=== PATIENT | male | born 2000 | race Caucasian/White ===

== ENCOUNTER 2020-03-31 14:28 | Emergency (ER) | payer MEDICAID ==
[~2020-03-31] VITALS: Ht 190.5 cm; Wt 75.0 kg
[~2020-03-31 14:28] MED LIST: ALBU6.7H11 IH
[2020-03-31] MEDS ORDERED: IBUPROFEN 600MG TABLET PO ONE (15:15)
[2020-03-31 18:00] VITALS: BP 127/78
== END 2020-03-31 18:13 | disposition home or self-care (01) ==
LOC: ER 14:28
DX: J45.909 Unspecified asthma, uncomplicated (principal); Z20.828 Contact with and (suspected) exposure to other viral communicable diseases; R07.89 Other chest pain; J02.9 Acute pharyngitis, unspecified; R06.02 Shortness of breath; R19.7 Diarrhea, unspecified
CPT/HCPCS: 71045; 87070; 87430; 93005; 99285; C9803; U0003; 87635

== ENCOUNTER 2023-06-26 09:27 | Emergency (ER) | payer MEDICAID ==
[~2023-06-26] VITALS: Ht 190.5 cm; Wt 87.0 kg
[~2023-06-26 09:27] MED LIST changes: -ALBU6.7H11 IH; +ALBU6.7H15 IH
[2023-06-26 09:29] VITALS: O2SAT 99
[2023-06-26] MEDS ORDERED: P20 PO (09:50)
[2023-06-26] MEDS ORDERED: ALBU6.7H15 INH (09:50)
[2023-06-26] MEDS ORDERED: OMEP40CA20 MT (09:50)
[2023-06-26 10:45] VITALS: BP 131/91; PULSE 65; RESP 19; TEMP 98.1
== END 2023-06-26 10:47 | disposition home or self-care (01) ==
LOC: ER 09:27
DX: J45.901 Unspecified asthma with (acute) exacerbation (principal); K21.9 Gastro-esophageal reflux disease without esophagitis
CPT/HCPCS: 99283

== ENCOUNTER 2023-06-29 21:29 | Emergency (ER) | payer OTHER ==
[~2023-06-29] VITALS: Ht 193 cm; Wt 86.9 kg
[~2023-06-29 21:29] MED LIST changes: +ALBU6.7H15 INH; +OMEP40CA20 MT; +P20 PO
[2023-06-29 21:32] VITALS: O2SAT 98
[2023-06-29 22:03] LABS: BASOPHILS % 0.4 % (0.0-2.0); EOSINOPHILS % 0.7 % (0.0-5.0); HEMATOCRIT. 43.4 % (42.0-52.0); HEMOGLOBIN. 15.1 g/dL (14.0-18.0); LYMPHOCYTES % 20.1 % (20.0-50.0); MEAN CORPUSCULAR HEMOGLOBIN 29.7 pg (28.0-32.0); MEAN CORPUSCULAR HGB CONC 34.8 g/dL (31.0-37.0); MEAN CORPUSCULAR VOLUME 85.4 fL (80.0-94.0); MEAN PLATELET VOLUME 9.5 fl (7.4-10.4); MONOCYTES % 8.3 % (2.0-8.0); NEUTROPHILS % 70.5 % (40.0-76.0); PLATELET 261 x1000/uL (130-400); RED BLOOD CELL COUNT 5.09 mill/uL (4.7-6.1); RED CELL DISTRIBUTION WIDTH 12.6 % (11.6-14.6); WHITE BLOOD COUNT 10.8 x1000/uL (4.5-11.0)
[2023-06-29 22:07] LABS: CHLORIDE 108 mEq/L (98-107); INDEX HEMOLYSI 2 (1-3); INDEX ICTERIC 1 (1-4); INDEX LIPEMIC 1 (1-3); POTASSIUM 3.5 mEq/L (3.5-5.1); PROTHROMBIN TIME 10.9 sec (9.6-11.0); SODIUM 139 mEq/L (136-145)
[2023-06-29 22:16] LABS: ALANINE AMINOTRANSFERASE 23 IU/L (13-61); ASPARTATE AMINOTRANSFERASE 20 IU/L (15-37); BILIRUBIN TOTAL 0.9 mg/dL (0.1-1.0); CALCIUM 9.6 mg/dL (8.5-10.1); CARBON DIOXIDE 22 mEq/L (21-32); CREATININE 0.9 mg/dL (0.6-1.3); GLUCOSE 100 mg/dL (70-105); PROTEIN TOTAL 8.2 g/dL (6.0-8.3); UREA NITROGEN BLOOD 11 mg/dL (7-21)
[2023-06-29 22:19] LABS: TROPONIN I HIGH SENSITIVITY < 4 ng/L (<78)
[2023-06-30] MEDS ORDERED: MAG355OR21 MT (02:26)
[2023-06-30] MEDS ORDERED: MAGNESIUM/ALUMINUM HYDROXIDE/SIMETHICONE 30ML UDC PO ONE (02:30)
[2023-06-30 04:17] VITALS: BP 118/77; PULSE 66; RESP 16; TEMP 98.2
== END 2023-06-30 04:19 | disposition home or self-care (01) ==
LOC: ER 21:29
DX: J45.901 Unspecified asthma with (acute) exacerbation (principal); K29.70 Gastritis, unspecified, without bleeding; F12.90 Cannabis use, unspecified, uncomplicated
CPT/HCPCS: 36415; 71045; 80053; 84484; 85025; 93005; 99285